=== PATIENT | female | born 1985 | race Hispanic/Latino ===

== ENCOUNTER 2016-07-29 10:42 | Emergency (ER) | payer MEDICAID ==
[2016-07-29 10:52] VITALS: RESP 18; O2SAT 98
--- NOTE | 2016-07-29 11:15 | C.PDOC ---
History Of Present Illness 30 year old patient, with a past medical history of migraines, presents to the ED complaining of a right sided headache since 4 am today. Patient states she feels swollen lymph node by ear, but denies any pain. She also complains of upper back pain for the past week. She has been taking Ibuprofen and Imitrex without relief. Patient currently does not have a PMD because she just moved to [place]. Patient denies any heavy lifting, any trauma, any injury, fever, vision change, nausea, vomiting, numbness, weakness, or dizziness. Time Seen by Provider: 07/29/16 11:07 Chief Complaint (Nursing): Abnormal Skin Integrity History Per: Patient History/Exam Limitations: no limitations Onset/Duration Of Symptoms: Hrs (4 am today) Current Symptoms Are (Timing): Still Present Severity: Mild Pain Scale Rating Of: 3 Recent travel outside of the [place]: No Past Medical History Reviewed: Historical Data, Nursing Documentation, Vital Signs Vital Signs: Last Vital Signs Temp 98 F 07/29/16 12:01 Pulse 79 07/29/16 12:01 Resp 18 07/29/16 12:01 BP 132/75 07/29/16 12:01 Pulse Ox 98 07/29/16 12:01 - Medical History PMH: Anemia, Migraine Family History: States: Unknown Family Hx - Social History Hx Tobacco Use: No Hx Alcohol Use: No Hx Substance Use: No - Immunization History Hx Tetanus Toxoid Vaccination: No Hx Influenza Vaccination: No Hx Pneumococcal Vaccination: No Review Of Systems Except As Marked, All Systems Reviewed And Found Negative. Constitutional: Negative for: Fever, Weakness, Malaise Eyes: Negative for: Vision Change ENT: Negative for: Ear Pain Cardiovascular: Negative for: Chest Pain, Palpitations Respiratory: Negative for: Cough, Shortness of Breath Gastrointestinal: Negative for: Nausea, Vomiting Musculoskeletal: Positive for: Back Pain (upper) Neurological: Positive for: Headache (right sided). Negative for: Weakness, Numbness, Dizziness Physical Exam - Physical Exam Appears: Non-toxic, No Acute Distress Skin: Warm, Dry Head: Atraumatic, Normacephalic Eye(s): bilateral: Normal Inspection, PERRL, EOMI (no nystagmus) Ear(s): Bilateral: Normal (no erythema) Nose: Normal Oral Mucosa: Moist Throat: Normal, No Erythema, No Exudate, No Drooling Neck: Normal ROM, Supple Lymphatic: Normal Exam, No Adenopathy Chest: Symmetrical Cardiovascular: Rhythm Regular, No Murmur Respiratory: Normal Breath Sounds, No Accessory Muscle Use, No Wheezing Back: No CVA Tenderness, No Vertebral Tenderness, Muscle Spasm, No Paraspinal Tenderness, Other (upper trapezius tenderness) Extremity: Normal ROM Neurological/Psych: Oriented x3, Normal Speech, Normal Cranial Nerves, No Cerebellar Signs Gait: Steady ED Course And Treatment O2 Sat by Pulse Oximetry: 98 (RA) Pulse Ox Interpretation: Normal Medical Decision Making Medical Decision Making: Impression: 30 year old female with right sided headache and upper back pain, normal neuro exam Plan: * Flexeril * Toradol Reassess and disposition: Patient remained alert and oriented in no distress and has no fever and stable vital signs in ED. Upon reevaluation she reports upper back pain is improving. Neck is supple. Advise patient to contact media aid service for assistance in finding primary care physician. Will discharge home with rx. Disposition Counseled Patient/Family Regarding: Diagnosis, Need For Followup, Rx Given - Disposition Referrals: [facility] [Outside] [facility] [Outside] Disposition: HOME/ ROUTINE Disposition Time: 11:37 Condition: STABLE Additional Instructions: Follow up with the clinic in 2-5 days for further evaluation. Take medications as needed for pain. Take ibuprofen with food, to not upset stomach. Return to the emergency department at any time if symptoms persist or worsen. You may call media aid service for any assistance [phone]. Your prescription sent to [facility] pharmacy Prescriptions: Cyclobenzaprine [Cyclobenzaprine HCl] 10 mg PO TID #21 tab Ibuprofen [Motrin] 600 mg PO Q8 #30 tab Instructions: Muscle Spasm (ED) - POA Present On Arrival: None - Clinical Impression Clinical Impression: Upper back pain on right side, Muscle spasm, Headache - PA / LOW [employer] G[employer]NER / Resident Statement MD/DO has reviewed & agrees with the documentation as recorded. - Scribe Statement The provider has reviewed the documentation as recorded by the Scribe Shanika Joseph All medical record entries made by the Scribe were at my direction and personally dictated by me. I have reviewed the chart and agree that the record accurately reflects my personal performance of the history, physical exam, medical decision making, and the department course for this patient. I have also personally directed, reviewed, and agree with the discharge instructions and disposition.
[2016-07-29 12:02] VITALS: BP 132/75; PULSE 79; TEMP 98
== END 2016-07-29 12:10 | disposition home or self-care (01) ==
LOC: C.ER 10:42
DX: M62.830 Muscle spasm of back (principal); R51 Headache; M54.6 Pain in thoracic spine
CPT/HCPCS: 96372; 99283; J1885

== ENCOUNTER 2016-09-27 09:35 | Emergency (ER) | payer MEDICAID ==
[2016-09-27 09:42] VITALS: BMI 39.1
[2016-09-27 09:44] VITALS: RESP 18; TEMP 98
[2016-09-27 10:45] LABS: RBC URINE 185 /hpf (0-3); URINE BILIRUBIN NEGATIVE (NEGATIVE); URINE BLOOD 3+ (NEGATIVE); URINE COLOR Yellow (YELLOW); URINE GLUCOSE (UA) NORMAL (Normal); URINE KETONE NEGATIVE (NEGATIVE); URINE LEUKOCYTE ESTERASE TRACE Leu/uL (Negative); URINE PROTEIN 2+ mg/dL (NEGATIVE); URINE UROBILINOGEN NORMAL mg/dL (0.2-1.0); WBC URINE 30 /hpf (0-5)
[2016-09-27] MEDS ORDERED: Oxycodone/Acetaminophen 5/325 mg Tab PO STA (10:45)
[2016-09-27] MEDS ORDERED: Oxycodone/Acetaminophen 5/325 mg Tab ONE (10:53)
--- NOTE | 2016-09-27 11:09 | C.PDOC ---
History Of Present Illness 31 y/o female presents to ED with c/o right knee pain since yesterday. She notes pain worsens with bending of the knee. Patient denies any injury. Reports similar pain in the past but not recently, noting she has tried Motrin and Tylenol w/o relief. Patient also reports history of ovarian cysts, and states cysts are bothering her today. Denies urinary symptoms, vaginal bleeding, or fever. Patient states, "Toradol doesn't work for me". Time Seen by Provider: 09/27/16 10:38 Chief Complaint (Nursing): Lower Extremity Problem/Injury History Per: Patient History/Exam Limitations: no limitations Onset/Duration Of Symptoms: Days Current Symptoms Are (Timing): Still Present Recent travel outside of the [place]: No Past Medical History Reviewed: Historical Data, Nursing Documentation, Vital Signs Vital Signs: Last Vital Signs Temp 98.0 F 09/27/16 09:43 Pulse 79 09/27/16 09:43 Resp 18 09/27/16 09:43 BP 114/72 09/27/16 09:43 Pulse Ox 96 09/27/16 11:12 - Medical History PMH: Anemia, Migraine Family History: States: Unknown Family Hx - Social History Hx Tobacco Use: No Hx Alcohol Use: No Hx Substance Use: No Review Of Systems Except As Marked, All Systems Reviewed And Found Negative. Constitutional: Negative for: Fever Gastrointestinal: Negative for: Vomiting, Diarrhea Genitourinary: Negative for: Dysuria, Vaginal Bleeding Musculoskeletal: Positive for: Other (Knee Pain ) Skin: Negative for: Rash Neurological: Negative for: Weakness, Numbness Physical Exam - Physical Exam Appears: Non-toxic, No Acute Distress Skin: Warm, Dry Head: Atraumatic, Normacephalic Chest: Symmetrical Cardiovascular: Rhythm Regular Respiratory: Normal Breath Sounds, No Rales, No Rhonchi, No Wheezing Gastrointestinal/Abdominal: Soft, No Tenderness, No Guarding, No Rebound Extremity: Tenderness (mild, medial right knee), No Deformity, No Swelling, Other (no redness to right knee) Extremity: Right: Limited ROM To Joint (slight decrease of ROM to right knee, secondary to pain) Neurological/Psych: Oriented x3, Normal Speech, Normal Cognition ED Course And Treatment O2 Sat by Pulse Oximetry: 96 (RA) Pulse Ox Interpretation: Normal - Other Rad Right Knee X-Ray X-Ray: Interpreted by Me, Viewed By Me Interpretation: negative for fx or dislocation Progress Note: Treated with Percocet. Right knee x-ray ordered and reviewed, negative for fx or dislocation. . Advised f/u with clinic for further evaluation. Medical Decision Making Medical Decision Making: X ray neg Pail likely due to pt weight Plan NSAID clinic F/u Disposition Counseled Patient/Family Regarding: Diagnosis, Need For Followup - Disposition Referrals: [facility] [Outside] Disposition: HOME/ ROUTINE Disposition Time: 11:30 Condition: GOOD Prescriptions: Meloxicam [Mobic] 1 tab PO DAILY #20 tab Instructions: Knee Pain (ED) - Clinical Impression Clinical Impression: Knee pain, right - Scribe Statement The provider has reviewed the documentation as recorded by the Scribcaren Davila All medical record entries made by the Alexibcaren were at my direction and personally dictated by me. I have reviewed the chart and agree that the record accurately reflects my personal performance of the history, physical exam, medical decision making, and the department course for this patient. I have also personally directed, reviewed, and agree with the discharge instructions and disposition.
[2016-09-27 12:02] VITALS: BP 128/75; PULSE 78; O2SAT 99
--- NOTE | 2016-09-27 12:37 | RAD ---
PROCEDURE: Right Knee Radiographs. HISTORY: COMPARISON: None available. FINDINGS: BONES: No acute displaced fracture. JOINTS: No dislocation. JOINT EFFUSION: No significant joint effusion. OTHER FINDINGS: None. IMPRESSION: No acute displaced fracture, dislocation, or significant joint effusion identified. If symptoms persist, or if there is continued clinical concern, x-ray follow-up in 7-10 days should be considered.
== END 2016-09-27 12:02 | disposition home or self-care (01) ==
LOC: SUPCPDRO 09:35 → C.ER 09:35
DX: M25.561 Pain in right knee (principal)

== ENCOUNTER 2017-08-05 09:54 | Emergency (ER) | payer MEDICAID ==
[2017-08-05 09:54] VITALS: BMI 39.1
[2017-08-05 10:18] VITALS: BP 115/78; PULSE 89; TEMP 97.4; O2SAT 98
[2017-08-05] MEDS ORDERED: Naproxen 550 mg Tab PO STA (10:26)
[2017-08-05] MEDS ORDERED: Naproxen 550 mg Tab PO ONE (10:30)
--- NOTE | 2017-08-05 10:30 | C.PDOC ---
History Of Present Illness 31 year old female, with no significant past medical history, presents to the emergency department complaining of sore throat, bilateral ear pain, body aches , fever and chills onset for x2 days. Patient denies chest pain, shortness of breath, cough, abdominal pain, nausea, vomiting, diarrhea or dysuria. She also denies sick contacts. PMD: Sonido Mohr Jr. Time Seen by Provider: 08/05/17 10:06 Chief Complaint (Nursing): Flu-like Symptoms History Per: Patient History/Exam Limitations: no limitations Onset/Duration Of Symptoms: Days (x2) Current Symptoms Are (Timing): Still Present Location Of Pain: Throat Associated Symptoms: Fever, Chills, Sore Throat, Other (body aches). denies: Cough, Nausea, Vomiting, Diarrhea Ear Symptoms: Bilateral: Ear Pain Severity: Mild Past Medical History Reviewed: Historical Data, Nursing Documentation, Vital Signs Vital Signs: Last Vital Signs Temp 97.4 F L 08/05/17 10:03 Pulse 89 08/05/17 10:03 Resp BP 115/78 08/05/17 10:03 Pulse Ox 98 08/05/17 11:20 - Medical History PMH: Anemia, Migraine Surgical History: No Surg Hx Family History: States: No Known Family Hx - Social History Hx Tobacco Use: No Hx Alcohol Use: No Hx Substance Use: No - Immunization History Hx Tetanus Toxoid Vaccination: No Hx Influenza Vaccination: Yes Hx Pneumococcal Vaccination: No Review Of Systems Except As Marked, All Systems Reviewed And Found Negative. Constitutional: Positive for: Fever, Chills, Other (body aches) ENT: Positive for: Ear Pain (b/l ), Throat Pain Cardiovascular: Negative for: Chest Pain, Palpitations Respiratory: Negative for: Cough, Shortness of Breath Gastrointestinal: Negative for: Nausea, Vomiting, Abdominal Pain, Diarrhea Genitourinary: Negative for: Dysuria Physical Exam - Physical Exam Appears: Well, Non-toxic, No Acute Distress Skin: Normal Color, Warm, Dry, No Rash Eye(s): bilateral: Normal Inspection Ear(s): Bilateral: Normal Nose: Normal Oral Mucosa: Moist Throat: Erythema (mild), No Exudate (or swelling), No Drooling Neck: Normal, Normal ROM, Supple Lymphatic: No Adenopathy Cardiovascular: Rhythm Regular Respiratory: Normal Breath Sounds, No Rales, No Rhonchi, No Wheezing Gastrointestinal/Abdominal: Normal Exam, Bowel Sounds, Soft, No Tenderness Neurological/Psych: Oriented x3 ED Course And Treatment O2 Sat by Pulse Oximetry: 98 (RA) Pulse Ox Interpretation: Normal Progress Note: Initial Impression: Viral URI. Plan: Patient given PO Naporsyn and Sudafed for viral URI symptoms. She was given Rxs for Naproxen, Sudafed and Chloraseptic max spray, and instructed to follow up with PMD/clinic in 1-2 days. She understands she should return to ED if symptoms worsen. Reevaluation Time: 10:30 Reassessment Condition: Improved Disposition Counseled Patient/Family Regarding: Studies Performed, Diagnosis, Need For Followup, Rx Given - Disposition Referrals: Sonido Mohr Jr., MD [Medical Doctor] - Disposition: HOME/ ROUTINE Disposition Time: 10:30 Condition: STABLE Additional Instructions: FOLLOW UP WITH YOUR DOCTOR IN 1-2 DAYS USE MEDICATIONS NEEDED DRINK PLENTY OF FLUIDS RETURN TO ER IF SYMPTOMS WORSEN Prescriptions: Naproxen 375 mg PO BID PRN #20 tablet PRN Reason: pain Phenol/Glycerin [Chloraseptic Max Leona] 1 spray MM Q6 PRN #1 spray PRN Reason: THROAT PAIN Pseudoephedrine [Sudafed] 60 mg PO Q6 PRN #15 tab PRN Reason: Nasal Congestion Instructions: Viral Upper Respiratory Infection, Adult (DC), Viral Syndrome (DC ) Forms: [facility] ([place]an) Print Language: TAJIK - Clinical Impression Clinical Impression: Viral upper respiratory infection - Scribe Statement The provider has reviewed the documentation as recorded by the Del Tom Provider Attestation: All medical record entries made by the Del were at my direction and personally dictated by me. I have reviewed the chart and agree that the record accurately reflects my personal performance of the history, physical exam, medical decision making, and the department course for this patient. I have also personally directed, reviewed, and agree with the discharge instructions and disposition.
== END 2017-08-05 10:33 | disposition home or self-care (01) ==
LOC: C.ER 09:54
DX: J06.9 Acute upper respiratory infection, unspecified (principal)

== ENCOUNTER 2018-02-26 17:27 | Emergency (ER) | payer OTHER, MEDICAID ==
[2018-02-26 17:50] VITALS: BMI 31.3
[2018-02-26 17:53] VITALS: BP 128/80; PULSE 71; RESP 16; TEMP 98.8; O2SAT 100
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
[2018-02-26] MEDS ORDERED: Lidocaine 5% Patch TD ONE (19:15)
[2018-02-26] MEDS ORDERED: Lidocaine 5% Patch TD STA (19:24)
== END 2018-02-26 19:26 | disposition home or self-care (01) ==
LOC: C.ER 17:27
DX: S16.1XXA Strain of muscle, fascia and tendon at neck level, initial encounter (principal); V59.40XA Driver of pick-up truck or van injured in collision with unspecified motor vehicles in traffic accident, initial encounter